=== PATIENT | male | born 1995 | race African-American/Black ===

== ENCOUNTER 2017-12-31 17:31 | Emergency (ER) | payer SELFPAY ==
[~2017-12-31] VITALS: Ht 170.2 cm; Wt 56.0 kg
[2017-12-31 17:37] VITALS: BP 156/73
== END 2017-12-31 19:19 | disposition left against medical advice (07) ==
LOC: ER 17:31
DX: Z53.21 Procedure and treatment not carried out due to patient leaving prior to being seen by health care provider (principal)